=== PATIENT | female | born 1995 | race Caucasian/White ===

== ENCOUNTER 2021-02-15 11:24 | Observation (INO) | payer BC, SELFPAY ==
[2021-02-15 11:42] VITALS: BP 130/85; PULSE 65; RESP 18; TEMP 36.7; O2SAT 99; BMI 29.8
--- NOTE | 2021-02-15 12:15 | W.ED.PSYCH ---
HPI - Psych General: Chief Complaint: Psychiatric Symptoms Stated Complaint: ANXIETY Time Seen by Provider: 02/15/21 11:43 Source: patient Mode of arrival: ambulatory Limitations: no limitations History of Present Illness: HPI Narrative: Patient is a 25-year-old female who presents to the emergency department with anxiety and suicidal ideations. She has been having marital issues and unfortunately had an affair with her ex which further exacerbated her marital issues with her current . They have talked about divorce and it is weighing on this patient and last night the patient and her got into an argument which further worsened her symptoms. She endorses suicidal ideations but has no plan. She denies homicidal ideation. MD complaint: suicidal ideation and feels depressed Onset (ago): day(s) Duration: intermittent History of same: No Relieving factors: none Exacerbating factors: none Context: significant life stressor Associated psychiatric symptoms: suicidal ideation Associated symptoms: Reports suicidal ideation; Deny auditory hallucinations, visual hallucinations, delusions, depression, homicidal ideation or racing thoughts Treatments prior to arrival: none If self harm: admits thoughts of self harm Review of Systems General: Reports: 10 or more systems reviewed and unremarkable except in HPI and below Psych: Reports: suicidal ideation; Denies: depression, visual hallucinations, auditory hallucinations or homicidal ideation [facility] [place] [facility] Female Reproductive History: Date of last menstrual period: 02/02/21 Physical Exam Const: COMMON NORMALS: no acute distress, average body habitus, patient oriented x3, no limitations, healthy appearing, alert and well nourished HENMT: COMMON NORMALS: normocephalic, atraumatic and moist oral mucous membranes HEAD & SCALP: normocephalic and atraumatic Neck/C-Spine: COMMON NORMALS: no meningeal signs and no JVD Resp: COMMON NORMALS: normal respiratory effort, No retractions, No use of accessory muscles, clear to auscultation bilaterally and percussion normal AUSCULTATION: clear to auscultation bilaterally PERCUSSION: percussion normal Cardio: COMMON NORMALS: no JVD, regular rate, regular rhythm, S1 normal heart sound present, S2 normal heart sound present, No gallops present (Cardio), No clicks present (Cardio), No murmurs present (Cardio), No rub (Cardio) and Peripheral pulses 2+ throughout RATE: regular rate RHYTHM: regular rhythm HEART SOUNDS: S1 normal heart sound present and S2 normal heart sound present PERIPHERAL PULSES: Peripheral pulses 2+ throughout GI: COMMON NORMALS: Normal to inspection, nondistended, normoactive bowel sounds present, Soft to palpation, non-tender, No hepatosplenomegaly present, no masses and no bruits PALPATION: Yes Soft to palpation and Yes No hepatosplenomegaly present Extremity: COMMON NORMALS: normal to inspection, full ROM, capillary refill normal, no calf tenderness and no pedal edema Neuro: COMMON NORMALS: patient oriented x3 SENSORIUM/ORIENTATION: Yes alert MENINGEAL SIGNS: Yes no meningeal signs Psych: THOUGHT CONTENT: No delusions Skin: COMMON NORMALS: no rashes or lesions noted, no wounds, turgor normal, no jaundice, no petechiae and no mottling GENERAL SKIN EXAM: no rashes or lesions noted and turgor normal Course Reevaluation(s): Reevaluation #1: Discussed her lab findings with her. Also discussed my conversation with the psychiatrist. Advised that we will admit her to the psychiatric unit and she voiced understanding and is in agreement with the plan. Time: 14:20 Consultations: Consultation #1: Discussed the patient with Dr. Winn, psychiatrist on-call and he kindly accepted the patient to his service. Time: 13:47 Vital Signs: Vital signs: Vital Signs Temperature 98.1 F 02/15/21 11:42 Pulse Rate 65 02/15/21 11:42 Respiratory Rate 18 02/15/21 11:42 Blood Pressure 130/85 02/15/21 11:42 Pulse Oximetry 99 02/15/21 11:42 MDM - Psych MDM Narrative: Medical decision making narrative: 25 year old female with significant life stressors who has suicidal ideations. She is medically cleared and admitted to the [facility] for further evaluation and management by the psychiatrist. Medical Records: Attestation: I reviewed the patient's medical records. Lab Data: Attestation: I reviewed the patient's lab results. Labs: Lab Results 02/15/21 02/15/21 02/15/21 Range/Units 12:51 12:51 13:24 WBC 12.1 H (4.0-10.0) 10^3/ uL RBC 4.92 (4.1-5.3) 10^6/u L Hgb 14.4 (11.5-15.3) g/dL Hct 42.7 (37.0-47.0) % MCV 86.8 (81-99) fL MCH 29.3 (28.0-34.0) pg MCHC 33.7 (30.0-36.0) g/dL RDW 12.7 (12.1-15.1) % Plt Count 246 (130-400) 10^3/c mm MPV 10.1 (7.4-10.4) fL Neut % (Auto) 82.8 % Lymph % (Auto) 13.0 % [place] % (Auto) 3.5 % Eos % (Auto) 0.2 % Baso % (Auto) 0.2 % Neut # (Auto) 9.99 H (1.8-7.7) 10^3/u L Lymph # (Auto) 1.6 (0.8-4.8) 10^3/u L [place] # (Auto) 0.4 (0.2-0.9) 10^3/u L Eos # (Auto) 0.0 (0.0-0.8) 10^3/u L Baso # (Auto) 0.0 (0.0-0.1) 10^3/u L Nucleated RBC % (a uto) 0 % Nucleated RBCs # 0.0 /100WBC Sodium 141 (136-145) mmol/L Potassium 3.7 (3.5-5.1) mmol/L Chloride 105 (98-107) mmol/L Carbon Dioxide 26 (22-29) mmol/L Anion Gap 13.7 (5-19) BUN 10 (6-20) mg/dL Creatinine 0.6 (0.5-0.9) mg/dL GFR Calculation 121.8 (90-130) mL/min Glucose 96 (65-115) mg/dL Calculated Osmolal ity 291 (285-295) mOsm/k g Calcium 9.4 (8.5-10.5) mg/dL Total Bilirubin 0.7 (0.15-1.2) mg/dL AST 11 (0-32) U/L ALT 10 (0-33) U/L Alkaline Phosphata se 65 (35-105) IU/L Total Protein 7.7 (6.6-8.7) g/dL Albumin 5.0 (3.5-5.2) g/dL Globulin 2.7 (1.3-4.6) g/dL TSH 0.90 (0.27-4.20) uIU/ mL HCG, Qual Negative (Negative) Urine Color (Yellow) Urine Appearance (CLEAR) Urine pH (5-7) Ur Specific Gravit y (1.005-1.030) Urine Protein (Negative) Urine Glucose (UA) (Normal) Urine Ketones (Negative) Urine Blood (Negative) Urine Nitrate (Negative) Urine Bilirubin (Negative) Urine Urobilinogen (Negative) mg/dL Ur Leukocyte Clarissa ase (Negative) Urine RBC (0-2) /hpf Urine WBC (0-5) /hpf Ur Squamous Epith Cells (0-5) /hpf Amorphous Sediment Urine Bacteria (NONE) /hpf Urine Mucus /hpf Salicylates < 0.3 L (3-10) mg/dL Urine Opiates Scre en (Negative) ng/mL Acetaminophen 10.5 (10-30) ug/mL Ur Barbiturates Sc reen (Negative) ng/mL Ur Phencyclidine S crn (Negative) ng/mL Ur Amphetamines Sc reen (Negative) ng/mL U Benzodiazepines Scrn (Negative) ng/mL Urine Cocaine Scre en (Negative) ng/mL U Marijuana (THC) Screen (Negative) ng/mL Ethyl Alcohol < 10 (0-10) mg/dL 02/15/21 02/15/21 Range/Units 13:24 13:24 WBC (4.0-10.0) 10^3/ uL RBC (4.1-5.3) 10^6/u L Hgb (11.5-15.3) g/dL Hct (37.0-47.0) % MCV (81-99) fL MCH (28.0-34.0) pg MCHC (30.0-36.0) g/dL RDW (12.1-15.1) % Plt Count (130-400) 10^3/c mm MPV (7.4-10.4) fL Neut % (Auto) % Lymph % (Auto) % [place] % (Auto) % Eos % (Auto) % Baso % (Auto) % Neut # (Auto) (1.8-7.7) 10^3/u L Lymph # (Auto) (0.8-4.8) 10^3/u L [place] # (Auto) (0.2-0.9) 10^3/u L Eos # (Auto) (0.0-0.8) 10^3/u L Baso # (Auto) (0.0-0.1) 10^3/u L Nucleated RBC % (a uto) % Nucleated RBCs # /100WBC Sodium (136-145) mmol/L Potassium (3.5-5.1) mmol/L Chloride (98-107) mmol/L Carbon Dioxide (22-29) mmol/L Anion Gap (5-19) BUN (6-20) mg/dL Creatinine (0.5-0.9) mg/dL GFR Calculation (90-130) mL/min Glucose (65-115) mg/dL Calculated Osmolal ity (285-295) mOsm/k g Calcium (8.5-10.5) mg/dL Total Bilirubin (0.15-1.2) mg/dL AST (0-32) U/L ALT (0-33) U/L Alkaline Phosphata se (35-105) IU/L Total Protein (6.6-8.7) g/dL Albumin (3.5-5.2) g/dL Globulin (1.3-4.6) g/dL TSH (0.27-4.20) uIU/ mL HCG, Qual (Negative) Urine Color Yellow (Yellow) Urine Appearance Sl hazy (CLEAR) Urine pH 7 (5-7) Ur Specific Gravit y 1.010 (1.005-1.030) Urine Protein Neg (Negative) Urine Glucose (UA) Norm (Normal) Urine Ketones Negative (Negative) Urine Blood Neg (Negative) Urine Nitrate Negative (Negative) Urine Bilirubin Neg (Negative) Urine Urobilinogen 1 H (Negative) mg/dL Ur Leukocyte Clarissa ase Negative (Negative) Urine RBC None (0-2) /hpf Urine WBC 5-10 H (0-5) /hpf Ur Squamous Epith Cells 10-15 H (0-5) /hpf Amorphous Sediment Not Reportable Urine Bacteria 3+ H (NONE) /hpf Urine Mucus 2+ /hpf Salicylates (3-10) mg/dL Urine Opiates Scre en Negative (Negative) ng/mL Acetaminophen (10-30) ug/mL Ur Barbiturates Sc reen Negative (Negative) ng/mL Ur Phencyclidine S crn Negative (Negative) ng/mL Ur Amphetamines Sc reen Negative (Negative) ng/mL U Benzodiazepines Scrn Negative (Negative) ng/mL Urine Cocaine Scre en Negative (Negative) ng/mL U Marijuana (THC) Screen Negative (Negative) ng/mL Ethyl Alcohol (0-10) mg/dL Discharge Plan Discharge Patient Disposition: Admitted As Inpatient Clinical Impression: Suicidal ideation Condition: Stable Prescriptions: No Action No Known Home Medications RF: 0 Coding Level of Care Code ED Animal Pathology Teacher for Broderickg Fwd Exam Comprehensive
[2021-02-15 13:00] LABS: Basophils % 0.2 %; Eosinophils % 0.2 %; Hematocrit 42.7 % (37.0-47.0); Hemoglobin 14.4 g/dL (11.5-15.3); Lymphocytes # 1.6 10^3/uL (0.8-4.8); Mean Corpuscular HGB Conc 33.7 g/dL (30.0-36.0); Mean Corpuscular Hemoglobin 29.3 pg (28.0-34.0); Mean Corpuscular Volume 86.8 fL (81-99); Mean Platelet Volume 10.1 fL (7.4-10.4); Monocytes # 0.4 10^3/uL (0.2-0.9); Monocytes % 3.5 %; Neutrophils # 9.99 10^3/uL (1.8-7.7); Neutrophils % 82.8 %; Nucleated Red Blood Cells % 0 %; Platelet Count 246 10^3/cmm (130-400); Red Blood Count 4.92 10^6/uL (4.1-5.3); Red Cell Distribution Width 12.7 % (12.1-15.1); White Blood Count 12.1 10^3/uL (4.0-10.0)
[2021-02-15 13:33] LABS: Acetaminophen 10.5 ug/mL (10-30); Alanine Aminotransferase 10 U/L (0-33); Alkaline Phosphatase 65 IU/L (35-105); Anion Gap 13.7 (5-19); Aspartate Amino Transferase 11 U/L (0-32); Blood Urea Nitrogen 10 mg/dL (6-20); Calcium 9.4 mg/dL (8.5-10.5); Carbon Dioxide 26 mmol/L (22-29); Chloride 105 mmol/L (98-107); Globulin 2.7 g/dL (1.3-4.6); Glomerular Filtration Rate 121.8 mL/min (90-130); Glucose 96 mg/dL (65-115); Osmolality Calculated 291 mOsm/kg (285-295); Potassium 3.7 mmol/L (3.5-5.1); Sodium 141 mmol/L (136-145); Total Bilirubin 0.7 mg/dL (0.15-1.2); Total Protein 7.7 g/dL (6.6-8.7)
[2021-02-15 13:40] LABS: HCG Qualitative Urine. Negative (Negative)
[2021-02-15 13:41] LABS: Alcohol Level < 10 mg/dL (0-10); Salicylate < 0.3 mg/dL (3-10)
[2021-02-15 14:07] LABS: Amphetamines Screen Urine Negative (Negative); Barbiturates Screen Urine Negative (Negative); Benzodiazepines Screen Urine Negative (Negative); Cocaine Screen Urine Negative (Negative); Opiate Screen Urine Negative (Negative); PCP Screen Urine Negative (Negative); THC Screen Urine Negative (Negative)
[2021-02-15 14:17] LABS: Add Urine Microscopic? YES; Bilirubin Urine Neg (Negative); Blood Urine Neg (Negative); Glucose Urine UA Norm (Normal); Ketones Urine Negative (Negative); Leukocyte Esterase Urine Negative (Negative); Nitrate Urine Negative (Negative); Protein Urine Neg (Negative); Urine Appearance SL Hazy (CLEAR); Urine Color Yellow (Yellow); Urobilinogen Urine 1 mg/dL (Negative); pH Urine 7 (5-7)
[2021-02-15 14:18] LABS: Bacteria Urine 3+ /hpf; Mucus Urine 2+ /hpf
[2021-02-15 14:20] LABS: Add Urine Culture? No
[2021-02-15 15:02] VITALS: BP 117/69; PULSE 69; RESP 16; O2SAT 97
[2021-02-15 15:07] VITALS: BP 117/69; PULSE 69; RESP 16; TEMP 36.7; O2SAT 97
[2021-02-15 15:28] VITALS: BP 112/79; PULSE 74; RESP 17; TEMP 36.8; O2SAT 98
[2021-02-15 19:20] VITALS: BP 118/70; PULSE 83; RESP 18; TEMP 36.8; O2SAT 99
[2021-02-15] MEDS: acetaminophen 325 mg Tablet 650 MG PO (19:31)
[2021-02-16 06:00] VITALS: BP 106/69; PULSE 76; RESP 18; TEMP 37.1; O2SAT 97
[2021-02-16 10:58] VITALS: BP 106/69; PULSE 76; RESP 18; TEMP 37.1; O2SAT 97
--- NOTE | 2021-02-16 10:59 | P.SS_ITS ---
Short Stay Summary Providers Date of Admit/Discharge: 02/16/21 Attending Provider: Joy Blanchard DO Chief Complaint: ANXIETY HPI History of Present Illness Eri Ramirez is a 25 year old female with a past psychiatric history of seeing a counselor on a couple of occasions while in high school for relationship stress presented to the emergency department with suicidal ideation in the context of acute marital stress after an argument with her . Patient was not reporting any active intent or plan of harming herself and has no history of suicide attempt or self-harm behavior. Review of Systems General: Reports: 10 or more systems reviewed and unremarkable except in HPI and below Home Meds/Allergies Home Medications and Allergies Home Medications Medication Instructions Recorded Confirmed Type No Known Home Medications 02/15/21 02/15/21 History Allergies Allergy/AdvReac Type Severity Reaction Status Date / Time sulfamethoxazole Allergy ALGY-Hives Verified 02/15/21 11:49 [From Bactrim] trimethoprim [From Bactrim] Allergy ALGY-Hives Verified 02/15/21 11:49 PFSH Acute Female Reproductive History: Date of last menstrual period: 02/02/21 Vitals/I&O/Wt Last Vital Signs Temp 98.8 F 02/16/21 10:58 Pulse 76 02/16/21 10:58 Resp 18 02/16/21 10:58 BP 106/69 02/16/21 10:58 Pulse Ox 97 02/16/21 10:58 Weight last 48 hrs Weight 83.915 kg Physical Exam Narrative: EXAM NARRATIVE: MSE: Appears stated age, properly groomed and dressed, wearing hospital scrubs, calm, cooperative, interactive, good eye contact Psychomotor activity is neither increased nor decreased, no agitation Speech is normal rate and volume, spontaneous, clear articulation, not pressured I feel okay, full range of affect, smiles occasionally and appropriately during interview, not labile Alert and oriented to person, place, time, situation Memory and concentration appear to be intact per interview Intellectual functioning appears to be average based on vocabulary, interview Thought process, linear, no flight of ideas, no looseness of associations Thought content, no delusions, no hallucinations, no suicidal homicidal ideation Insight and judgment appear to be intact Hospital Course Hospital Course Patient was reporting passive suicidal thoughts in the context of heightened stress anxiety state after argument with her yesterday morning. She denied ever having any active intent or plan of ending her life or harming herself and has no past history of impulsive, unexpected behavior and no history of substance use or alcohol abuse. She denies any recent sustained mood symptoms, no past major depressive episodes. She reports some stress related anxiety related to her marriage, work, other life stressors. She currently denies any depressive symptoms and denies any anxiety symptoms although she does continue to report appropriate stress related anxiety and worries about her ongoing acute stressors. Per above, denies any suicidal ideation or thoughts about self-harm. Patient is future oriented citing her family and children as reasons for living. Low risk of harm to self given no current suicidal ideation and no active psychiatric symptoms although patient had recently voiced passive suicidal thoughts with no active intent or plan in the context of ongoing, acute life stressors. Risk mitigation included psychiatric hospitalization for observation for any worsening passive suicidal thoughts, evaluation for the need for any medication management as well as coordination for safe discharge to include follow-up counseling/therapy targeting the development of more adaptive coping strategies. Patient was able to communicate her understanding of the need to develop more adaptive coping strategies in the context of her ongoing life stressors through counseling and therapy in order to further mitigate her risk of harm to self. Diagnoses at Discharge Discharge Diagnosis (1) Adjustment disorder with mixed anxiety and depressed mood: Status: Acute (2) Suicidal ideation: Status: Acute Discharge Plan Discharge Patient Disposition: Home Condition: Stable Prescriptions: No Action No Known Home Medications RF: 0 Discharge Orders: Discharge Order (Routine); Ordered 02/16/21 Ordered By: Joy Blanchard Referrals: [facility] [Provider Group] [facility] [Provider Group] Discharge Diet: Regular Discharge Activity: Resume usual activity Patient Instructions: Opioid Safety Attestations Medical Necessity Statement*: Outpatient therapy/counseling is the least restrictive and appropriate level of care at this time Time Spent in Patient Care*: greater than 30 min Status at Discharge: Cognitive status at discharge: cognitively intact , Behavioral status at discharge: cooperative , Functional status at discharge: independent ambulation Overall status at discharge: patient is back to baseline Quality Metrics Clinical Quality Measures: During this hospital stay, did patient experience: None Coding Level of Care Code Acute Gamma Operator for Yvonne Fwchelsie Diagnoses Adjustment disorder with mixed anxiety and depressed mood F43.23 Suicidal ideation R45.850
== END 2021-02-16 11:15 | disposition home or self-care (01) ==
LOC: ER 14:29 → NP 20:05
PROVIDERS: Admitting Provider Psychiatry & Neurology Psychiatry; Emergency Provider Family Medicine; Visit Provider Psychiatry & Neurology Psychiatry
DX: F43.23 Adjustment disorder with mixed anxiety and depressed mood (principal); R45.851 Suicidal ideations
CPT/HCPCS: 80053; 80306; 80307; 81001; 81025; 84443; 85025; 99285; G0378

== ENCOUNTER → 2021-09-18 09:05 | Outpatient (BNVA) | payer BC, SELFPAY | PROVIDERS: Referring Provider Family Medicine Adult Medicine; Visit Provider Nurse Practitioner Women's Health | DX: Z12.4 Encounter for screening for malignant neoplasm of cervix (principal) | CPT/HCPCS: 88175 ==

== ENCOUNTER → 2021-10-07 16:04 | Outpatient (BNVA) | payer BC, SELFPAY | PROVIDERS: Visit Provider Nurse Practitioner Family | DX: Z20.822 Contact with and (suspected) exposure to COVID-19 (principal) | CPT/HCPCS: 87635 ==

== ENCOUNTER → 2021-10-11 14:45 | Outpatient (BNVA) | payer BC, SELFPAY | PROVIDERS: Visit Provider Nurse Practitioner Women's Health | DX: Z30.017 Encounter for initial prescription of implantable subdermal contraceptive (principal) | CPT/HCPCS: 81025 ==

== ENCOUNTER 2022-09-01 15:35 | Outpatient (CLI) | payer BC, MEDICAID, SELFPAY ==
--- NOTE | 2022-09-01 16:00 | XR_ITS ---
WS: [id number] XR acute abdomen series 26082 REASON FOR EXAM: abdominal pain FINDINGS: Bowel gas pattern is unremarkable. No free air or retroperitoneal air. No mass or significant calcification is identified. No bony abnormality of the lumbar spine or pelvis. XR/XR acute abdomen series [id number] IMPRESSION: No significant abnormality.
[2022-09-01 16:18] LABS: Basophils % 0.5 %; Eosinophils # 0.2 10^3/uL (0.0-0.8); Eosinophils % 1.8 %; Hematocrit 38.8 % (37.0-47.0); Hemoglobin 13.5 g/dL (11.5-15.3); Lymphocytes # 2.1 10^3/uL (0.8-4.8); Lymphocytes % 25.2 %; Mean Corpuscular HGB Conc 34.8 g/dL (30.0-36.0); Mean Corpuscular Hemoglobin 30.5 pg (28.0-34.0); Mean Corpuscular Volume 87.8 fl (81-99); Mean Platelet Volume 10.3 fL (7.4-10.4); Monocytes # 0.3 10^3/uL (0.2-0.9); Monocytes % 3.9 %; Neutrophils # 5.59 10^3/uL (1.8-7.7); Neutrophils % 68.2 %; Nucleated Red Blood Cells % 0 %; Platelet Count 202 10^3/cmm (130-400); Red Blood Count 4.42 10^6/uL (4.1-5.3); Red Cell Distribution Width 12.5 % (12.1-15.1); White Blood Count 8.2 10^3/uL (4.0-10.0)
[2022-09-01 16:38] LABS: Alanine Aminotransferase 10 U/L (0-33); Albumin Level 4.6 g/dL (3.5-5.2); Alkaline Phosphatase 49 U/L (35-105); Anion Gap 12.7 (5-19); Aspartate Amino Transferase 12 U/L (0-32); Blood Urea Nitrogen 14 mg/dL (6-20); Calcium 9.4 mg/dL (8.5-10.5); Carbon Dioxide 25 mmol/L (22-29); Chloride 103 mmol/L (98-107); Globulin 2.2 g/dL (1.3-4.6); Glomerular Filtration Rate 86.7 mL/min (90-130); Glucose 100 mg/dL (65-115); Osmolality Calculated 285 mOsm/kg (285-295); Potassium 3.7 mmol/L (3.5-5.1); Sodium 137 mmol/L (136-145); Total Bilirubin 0.2 mg/dL (0.15-1.2); Total Protein 6.8 g/dL (6.6-8.7)
== END 2022-09-01 15:36 | disposition home or self-care (01) ==
LOC: LAB 15:37
PROVIDERS: PCP Family Medicine; Visit Provider Surgery
DX: R10.9 Unspecified abdominal pain (principal)
CPT/HCPCS: 36415; 74022; 80053; 85025

== ENCOUNTER 2022-10-01 07:10 | Outpatient (CLI) | payer BC, MEDICAID, SELFPAY ==
[2022-10-01] MEDS: iohexol 350 mg/mL 500 mL Btl (per mL) PO (07:56)
--- NOTE | 2022-10-01 08:30 | CT_ITS ---
WS: [id number] CT ABDOMEN PELVIS TECHNIQUE: Contrast-enhanced CT of the abdomen and pelvis with coronal and sagittal reformatted image s. CLINICAL INFORMATION: Abdominal Pain COMPARISON: CT 2012 DLP: 1058.[address] scans at [facility] use at least one of these dose optimization techniques: automated e xposure control; mA and/or kV adjustment per patient size (includes targeted exams where dose is matc hed to clinical indication); or iterative reconstruction. FINDINGS: Diffuse fatty infiltration liver. Normal portal vein and splenic vein. Mild splenomegaly measuring 12 .1 cm. Normal GE junction. Normal pancreatic parenchymal enhancement. Normal caliber abdominal aorta. Celiac and SMA are patent. Lung bases are well aerated. Celiac and SMA are patent. Adrenal glands are normal. Normal renal paren chymal enhancement. Prominent RIGHT extrarenal pelvis. Moderate RIGHT ureterectasis in the mid ureter . No hydronephrosis in either kidney. Normal sigmoid colon. No evidence of high-grade small or large bowel obstruction. Mild constipation t ransverse colon and sigmoid colon. Prominent uterus with fluid or endometrial thickening likely physi ologic. Pelvic varicosities can be seen with pelvic congestion syndrome in the appropriate clinical s etting. Multi-follicular ovaries bilaterally. Small amount of free fluid in the cul-de-sac. Normal appendix in the RIGHT lower quadrant. No evidence of acute appendicitis.Normal lumbar spine. CT/CT abdomen pelvis w con* [id number] IMPRESSION: 1. Physiologic heterogeneous uterine enhancement with fluid or endometrial thi ckening in the endometrial canal. 2. Prominent pelvic varicosities can be seen with pelvic congestion syndrome i n the appropriate clinical setting. Multi-follicular ovaries bilaterally. Small amount of free fluid in the cul-de-sac. 3. Normal appendix in the RIGHT lower quadrant. No evidence of acute appendici tis. 4. Normal renal parenchymal enhancement. No hydronephrosis. Prominent extraren al pelvises bilaterally. Moderate dilatation of the RIGHT mid ureter. No visual ized obstructing lesions. Recommend correlation for UTI. 5. Mild diffuse fatty infiltration liver. Mild splenomegaly. 6. No other suspicious findings.
[2022-10-01] MEDS: iohexol 350 mg/mL 500 mL Btl (per mL) IV (08:47)
== END 2022-10-01 07:11 | disposition home or self-care (01) ==
LOC: RAD 07:10
PROVIDERS: PCP Family Medicine; Visit Provider Surgery
DX: R10.9 Unspecified abdominal pain (principal); R16.1 Splenomegaly, not elsewhere classified; K76.0 Fatty (change of) liver, not elsewhere classified
CPT/HCPCS: 74177; Q9967

== ENCOUNTER → 2022-10-21 10:10 | Outpatient (BNVA) | payer MEDICAID, SELFPAY | PROVIDERS: PCP Family Medicine; Visit Provider Nurse Practitioner Women's Health | DX: N28.82 Megaloureter (principal) | CPT/HCPCS: 87086 ==

== ENCOUNTER → 2022-11-06 12:58 | Outpatient (BNVA) | payer MEDICAID, SELFPAY | PROVIDERS: PCP Family Medicine; Visit Provider Nurse Practitioner Women's Health | DX: R10.2 Pelvic and perineal pain (principal); N83.12 Corpus luteum cyst of left ovary | CPT/HCPCS: 76830 ==

== ENCOUNTER → 2023-11-12 15:53 | Outpatient (BNVA) | payer MEDICAID, SELFPAY | PROVIDERS: PCP Family Medicine; Visit Provider Nurse Practitioner Women's Health | DX: Z12.4 Encounter for screening for malignant neoplasm of cervix (principal) | CPT/HCPCS: 88175 ==

== ENCOUNTER 2024-01-14 06:52 | Emergency (ER) | payer MEDICAID, SELFPAY ==
[2024-01-14 07:04] VITALS: BP 119/75; PULSE 94; RESP 18; O2SAT 99
--- NOTE | 2024-01-14 07:11 | ED_ITS ---
HPI - Abdominal Pain 2 General: Chief Complaint: Abdominal Pain Stated Complaint: Abd pain Time Seen by Provider: 01/14/24 06:58 Source: patient Mode of arrival: ambulatory History of Present Illness: 20-year-old female presents emergency ro om complaining of lower abdominal pain. She had some that began last evening reported it is better since that. She reports that she recently was started on Augmentin for a sinus infection. She has had issues with chronic constipation in the past previously she was on MiraLAX although according to the office notes from Dr. Avery she was not always consistent on and. She had seen Dr. Avery for chronic abdominal pain was thought to be from constipation and CT was done did not show a significant abnormality. She denies any dysuria urgency frequency denies any hematuria. No history of gynecological issues no history of ovarian cysts. She has had symptoms of upper respiratory illness related to the sinus infection she is being treated for but no major issues at this time. MD elicited complaint: abdominal pain Pertinent past history: constipation Onset (ago): day(s) (1) Location: Suprapubic Severity: moderate Quality: cramping Exacerbating factors: nothing Relieving factors: nothing Associated Symptoms: Reports constipation, GI cramping, nausea and poor appetite; Denies anorexia, belching, bloating, change in bowel habits, change in stool character, chills, coffee ground emesis, diarrhea, dyspepsia, dysuria, excessive flatus, fever(s), heartburn, hematochezia, hematuria, hematemesis, fecal incontinence, loose stools, melena, syncope and vomiting Review of Systems 2 Const: Denies: fever(s) or chills Card: Denies: chest pain or syncope Resp: Denies: dyspnea GI: Reports: abdominal pain, nausea, constipation and GI cramping; Denies: vomiting, hematemesis, coffee ground emesis, heartburn, diarrhea, bloating, belching, excessive flatus, fecal incontinence, change in bowel habits, change in stool character, hematochezia or melena : Denies: dysuria, urinary frequency, urinary urgency or hematuria Musc: Denies: neck pain or back pain Skin/Breast: Denies: rash PFSH ED 2 PFSH: Medical History No pertinent past medical history neghx: htn,dm,thyroid,dvt/pe PCP: Dr. Del Rosario Acne cystica Adjustment disorder with mixed anxiety and depressed mood Surgical History History of 2 sections 2013-- Primary secondary to Breech presentation 2018-- Planned Repeat C/S Family History Mother Hypercholesteremia Father Hypertension Grandmother Uterine cancer Maternal---dx age unknown,not sure if it was ovarian or uterine Denies family history of Colon cancer Ovarian cancer Diabetes Heart disease Breast cancer Thyroid disease Stroke Female Reproductive History: Spontaneous abortions: No Physical Exam 2 Const: COMMON NORMALS: no acute distress GENERAL APPEARANCE: cooperative and comfortable ORIENTATION/CONSCIOUSNESS: Yes awake, Yes oriented to person, Yes oriented to place and Yes oriented to time HENMT: COMMON NORMALS: normocephalic, atraumatic and hearing grossly normal bilaterally HEAD & SCALP: normocephalic and atraumatic Resp: COMMON NORMALS: normal respiratory effort, No retractions, No use of accessory muscles and clear to auscultation bilaterally AUSCULTATION: clear to auscultation bilaterally Cardio: COMMON NORMALS: regular rate, regular rhythm and No murmurs present (Cardio) RATE: regular rate RHYTHM: regular rhythm GI: COMMON NORMALS: Soft to palpation and No hepatosplenomegaly present A USCULTATION: Yes normoactive bowel sounds PALPATION: Yes Soft to palpation, No Tenderness to palpation present (GI), No Guarding due to palpation present (GI) and Yes No hepatosplenomegaly present Extremity: COMMON NORMALS: normal to inspection, capillary refill normal, no clubbing, cyanosis or edema, no calf tenderness and no pedal edema Neuro: SENSORIUM/ORIENTATION: Yes oriented to person, Yes oriented to place and Yes oriented to time Skin: COMMON NORMALS: no rashes or lesions noted GENERAL SKIN EXAM: no rashes or lesions noted Course 2 Vital Signs: Vital signs: Vital Signs Temperature 97.8 F 01/14/24 07:27 Pulse Rate 74 01/14/24 08:04 Respiratory Rate 18 01/14/24 07:04 Blood Pressure 121/69 01/14/24 08:04 Pulse Oximetry 96 01/14/24 08:04 Oxygen Delivery Me thod Room Air 01/14/24 07:04 MDM - Abdominal Pain Medical Decision Making Labs and imaging reviewed CBC is unremarkable no leukocytosis no clinically significant abnormalities on the CMP her abdominal exam was benign. Acute abdominal series does not show any free air or signs of obstruction there was a large amount of retained stool. Discharge home with mag citrate to use as needed for constipation follow-up with primary care doctor or surgeon. Differential Diagnosis Likely abdominal pain and constipation Medical Records I reviewed the patient's medical records. Lab Data I reviewed the patient's lab results. 01/14/24 07:19 01/14/24 07:19 Labs/Radiology: Laboratory Results WBC 8.24 10^3/uL (3.29-11.43) 01/14/24 07:19 RBC 4.63 10^6/uL (3.85-5.65) 01/14/24 07:19 Hgb 13.90 g/dL (11.27-16.99) 01/14/24 07:19 Hct 39.9 % (36-47) 01/14/24 07:19 MCV 86.2 fl (85-98) 01/14/24 07:19 MCH 30.0 pg (27-33) 01/14/24 07:19 MCHC 34.8 g/dL (30-55) 01/14/24 07:19 RDW 12.7 % (12.1-15.1) 01/14/24 07:19 Plt Count 213 10^3/cmm (157-399) 01/14/24 07:19 MPV 9.7 fL (7.4-10.4) 01/14/24 07:19 Neut % (Auto) 73.5 % 01/14/24 07:19 Lymph % (Auto) 19.8 % 01/14/24 07:19 [place] % (Auto) 4.5 % 01/14/24 07:19 Eos % (Auto) 1.2 % 01/14/24 07:19 Baso % (Auto) 0.4 % 01/14/24 07:19 Neut # (Auto) 6.06 10^3/uL (1.8-7.7) 01/14/24 07:19 Lymph # (Auto) 1.6 10^3/uL (0.8-4.8) 01/14/24 07:19 [place] # (Auto) 0.4 10^3/uL (0.2-0.9) 01/14/24 07:19 Eos # (Auto) 0.1 10^3/uL (0.0-0.8) 01/14/24 07:19 Baso # (Auto) 0.0 10^3/uL (0.0-0.1) 01/14/24 07:19 Nucleated RBC % (auto) 0 % 01/14/24 07:19 Nucleated RBCs # 0.0 /100WBC 01/14/24 07:19 Sodium 141 mmol/L (136-145) 01/14/24 07:19 Potassium 4.2 mmol/L (3.5-5.1) 01/14/24 07:19 Chloride 108 mmol/L (98-107) H 01/14/24 07:19 Carbon Dioxide 23 mmol/L (22-29) 01/14/24 07:19 Anion Gap 14.2 (5-19) 01/14/24 07:19 BUN 12 mg/dL (6-20) 01/14/24 07:19 Creatinine 0.6 mg/dL (0.5-0.9) 01/14/24 07:19 GFR Calculation 119.0 mL/min (90-130) 01/14/24 07:19 Glucose 110 mg/dL (65-115) 01/14/24 07:19 Calculated Osmolality 292 mOsm/kg (285-295) 01/14/24 07:19 Calcium 9.1 mg/dL (8.5-10.5) 01/14/24 07:19 Total Bilirubin 0.3 mg/dL (0.15-1.2) 01/14/24 07:19 AST 16 U/L (0-32) 01/14/24 07:19 ALT 22 U/L (0-33) 01/14/24 07:19 Alkaline Phosphatase 54 U/L (35-105) 01/14/24 07:19 Total Protein 6.6 g/dL (6.6-8.7) 01/14/24 07:19 Albumin 4.3 g/dL (3.5-5.2) 01/14/24 07:19 Globulin 2.3 g/dL (1.3-4.6) 01/14/24 07:19 HCG, Qual Negative (Negative) 01/14/24 07:19 Urine Color Yellow (Yellow) 01/14/24 07:10 Urine Appearance Clear (CLEAR) 01/14/24 07:10 Urine pH 6 (5-7) 01/14/24 07:10 Ur Specific [place] 1.015 (1.005-1.030) 01/14/24 07:10 Urine Protein Neg (Negative) 01/14/24 07:10 Urine Glucose (UA) Norm (Normal) 01/14/24 07:10 Urine Ketones Negative (Negative) 01/14/24 07:10 Urine Blood Neg (Negative) 01/14/24 07:10 Urine Nitrate Negative (Negative) 01/14/24 07:10 Urine Bilirubin Neg (Negative) 01/14/24 07:10 Urine Urobilinogen Neg mg/dL (Negative) 01/14/24 07:10 Ur Leukocyte Esterase Negative (Negative) 01/14/24 07:10 XR interpretation done by ED provider, pending radiology final review Discharge Plan Discharge Patient Disposition: Home Clinical Impression: Constipation Qualifiers: Constipation type: slow transit constipation Qualified Code(s): K59.01 - Slow transit constipation Condition: Stable Prescriptions: New magnesium citrate Solution 150 ml PO DAILY PRN (Reason: constipation) Qty: 296 0RF No Action Nexplanon 68 mg implant 1 implant subdermal ONCE amoxicillin-pot clavulanate 875-125 mg tablet 1 tab PO BID 10 Days Qty: 20 0RF Discharge Orders: Discharge ED (Routine); Ordered 01/14/24 Ordered By: Reilly Malone Referrals: Nando Hudson, [Primary Care Provider] - Discharge Diet: Usual diet Discharge Activity: Resume usual activity Patient Instructions: Opioid Safety, Pain Management Activity Restrictions/Additional Instructions: Thank you for choosing [facility] for your healthcare needs today. Please realize this is an emergency room and that we are providing you with a medical screening exam and this may not be complete and all inclusive of all the testing and or work up that you may need to determine your ailment or severity of your illness. It is very important that you follow up as instructed or that you return to the Emergency Department should you have concerns or if your condition changes or worsens in any way. You were seen today complaining of abdominal discomfort your white count was normal flat and upright of your abdomen showed a large amount of retained stool. UA did not show signs of infection. Recommend using mag citrate 150 mL acute 2 to 4 hours until adequate results achieved. Coding Level of Care Code ED Senior [employer] for Yvonne Guerrero
[2024-01-14 07:27] VITALS: TEMP 36.6
[2024-01-14 07:27] LABS: Add Urine Microscopic? NO; Charge for UA Resulting for Rev
[2024-01-14 07:28] LABS: Basophils % 0.4 %; Eosinophils # 0.1 10^3/uL (0.0-0.8); Eosinophils % 1.2 %; Hematocrit 39.9 % (36-47); Lymphocytes # 1.6 10^3/uL (0.8-4.8); Lymphocytes % 19.8 %; Mean Corpuscular HGB Conc 34.8 g/dL (30-55); Mean Corpuscular Volume 86.2 fl (85-98); Mean Platelet Volume 9.7 fL (7.4-10.4); Monocytes # 0.4 10^3/uL (0.2-0.9); Monocytes % 4.5 %; Neutrophils # 6.06 10^3/uL (1.8-7.7); Neutrophils % 73.5 %; Nucleated Red Blood Cells % 0 %; Platelet Count 213 10^3/cmm (157-399); Red Blood Count 4.63 10^6/uL (3.85-5.65); Red Cell Distribution Width 12.7 % (12.1-15.1); White Blood Count 8.24 10^3/uL (3.29-11.43)
[2024-01-14 07:32] LABS: Bilirubin Urine Neg (Negative); Blood Urine Neg (Negative); Glucose Urine UA Norm (Normal); Ketones Urine Negative (Negative); Leukocyte Esterase Urine Negative (Negative); Nitrate Urine Negative (Negative); Protein Urine Neg (Negative); Specific Gravity, Urine 1.015 (1.005-1.030); Urine Appearance Clear (CLEAR); Urine Color Yellow (Yellow); Urobilinogen Urine Neg (Negative); pH Urine 6 (5-7)
[2024-01-14 07:39] LABS: HCG, Serum Qual Negative (Negative)
--- NOTE | 2024-01-14 07:45 | XRR_ITS ---
PROCEDURE INFORMATION: Exam: XR Complete Acute Abdomen Series Including Chest Exam date and time: 01/14/2024 8:09 AM Age: 28 years old Clinical indication: Abdominal pain; Prior surgery; Surgery date: 6+ months; Surgery type: C section; Additional info: Abd pain/constipation TECHNIQUE: Imaging protocol: Radiologic exam. Complete acute abdomen series, including 2 or more views of the abdomen and a single view chest. COMPARISON: CT abdomen pelvis w con* [id number] 10/01/2022 8:44 AM FINDINGS: Lungs: Normal. No consolidation. Pleural spaces: Normal. No pleural effusions. No pneumothorax. Heart/Mediastinum: Normal. No cardiomegaly. Gastrointestinal tract: Formed stool and gas visualized throughout the colon to the rectum. No air-filled dilated bowel loops or sequential air-fluid levels. No evidence of bowel thickening. Intraperitoneal space: Unremarkable. No free air. Bones/joints: Normal. No acute fracture. Soft tissues: Unremarkable. XR/XR acute abdomen series [id number] IMPRESSION: No acute findings.
[2024-01-14 07:46] LABS: Alanine Aminotransferase 22 U/L (0-33); Albumin Level 4.3 g/dL (3.5-5.2); Alkaline Phosphatase 54 U/L (35-105); Anion Gap 14.2 (5-19); Aspartate Amino Transferase 16 U/L (0-32); Blood Urea Nitrogen 12 mg/dL (6-20); Calcium 9.1 mg/dL (8.5-10.5); Carbon Dioxide 23 mmol/L (22-29); Chloride 108 mmol/L (98-107); Creatinine Clr Calc Pharmacy 152.7766; Globulin 2.3 g/dL (1.3-4.6); Glucose 110 mg/dL (65-115); Osmolality Calculated 292 mOsm/kg (285-295); Potassium 4.2 mmol/L (3.5-5.1); Sodium 141 mmol/L (136-145); Total Bilirubin 0.3 mg/dL (0.15-1.2); Total Protein 6.6 g/dL (6.6-8.7)
[2024-01-14 08:04] VITALS: BP 121/69; PULSE 74; O2SAT 96
[2024-01-14 08:57] VITALS: BP 121/69; PULSE 67; O2SAT 95
== END 2024-01-14 08:58 | disposition home or self-care (01) ==
PROVIDERS: Emergency Provider Family Medicine; PCP Family Medicine
DX: K59.01 Slow transit constipation (principal)
CPT/HCPCS: 36415; 74022; 80053; 81003; 84703; 85025; 99284

== ENCOUNTER → 2024-12-07 16:02 | Outpatient (BNVA) | payer MEDICAID, SELFPAY | PROVIDERS: PCP Family Medicine; Visit Provider Nurse Practitioner Women's Health | DX: Z30.46 Encounter for surveillance of implantable subdermal contraceptive (principal) | CPT/HCPCS: 81025 ==

== ENCOUNTER → 2025-03-07 07:54 | Outpatient (BNVA) | payer MEDICAID, SELFPAY | PROVIDERS: PCP Family Medicine; Visit Provider Nurse Practitioner Family | DX: J02.9 Acute pharyngitis, unspecified (principal) | CPT/HCPCS: 87880 ==

== ENCOUNTER → 2025-03-24 12:51 | Outpatient (BNVA) | payer MEDICAID, SELFPAY | PROVIDERS: PCP Family Medicine; Visit Provider Registered Nurse Neonatal Intensive Care | DX: J02.9 Acute pharyngitis, unspecified (principal) | CPT/HCPCS: 87880 ==

== ENCOUNTER → 2025-07-13 08:04 | Outpatient (BNVA) | payer MEDICAID, SELFPAY | PROVIDERS: PCP Family Medicine; Visit Provider Nurse Practitioner Family | DX: R30.0 Dysuria (principal); N39.0 Urinary tract infection, site not specified | CPT/HCPCS: 81003; 87077; 87086; 87186 ==

== ENCOUNTER → 2025-07-20 10:15 | Outpatient (BNVA) | payer MEDICAID, SELFPAY | PROVIDERS: PCP Family Medicine; Visit Provider Nurse Practitioner Women's Health | DX: N93.9 Abnormal uterine and vaginal bleeding, unspecified (principal) | CPT/HCPCS: 84439; 84443; 85025; 88175 ==

== ENCOUNTER 2025-08-02 15:56 | Outpatient (CLI) | payer MEDICAID, SELFPAY ==
--- NOTE | 2025-08-02 16:00 | US_ITS ---
WS: [id number] US transvaginal [id number] HISTORY: N93.9 - Abnormal uterine and vaginal bleeding, unspecified COMPARISON: None available. Uterus: 10.7 cm x 3.9 cm x 4.0 cm. Uterus is slightly enlarged. Uterus is retroflexed posteriorly. This makes evaluation of the uterus difficult due to its position. No fibroid or mass identified. Endometrium: 0.8 cm. As visualized the endometrium is normal. There is a calcification adjacent to the endometrium which can be noted with prior instrumentation. Benign process. Right ovary: 2.5 cm x 2.5 cm x 1.5 cm. Normal size and vascularity, no cystic or solid masses. Dominant follicle measures 2.7 x 2.2 x 2.1 cm. Left ovary: 3.0 cm x 2.4 cm x 2.7 cm. Normal size and vascularity, no cystic or solid masses. No free fluid in the cul-de-sac. US/US transvaginal [id number] IMPRESSION: 1. Mild uterine enlargement. No fibroid or mass identified. 2. Normal endometrium. 3. Both ovaries are identified and normal.
== END 2025-08-02 15:57 | disposition home or self-care (01) ==
LOC: RAD 15:57
PROVIDERS: PCP Family Medicine; Visit Provider Nurse Practitioner Women's Health
DX: N93.9 Abnormal uterine and vaginal bleeding, unspecified (principal); N85.2 Hypertrophy of uterus
CPT/HCPCS: 76830